=== PATIENT | female | born 2000 ===

== ENCOUNTER 2021-02-18 12:15 | Emergency (ER) | payer OTHER, BC, SELFPAY ==
[2021-02-18 12:21] VITALS: BP 109/69; PULSE 76; RESP 18; TEMP 36.1; O2SAT 99; BMI 27.4
--- NOTE | 2021-02-18 12:24 | PC.NURSE ---
great toes are not infected. slightl swelling lateral edges of nail bilaterally.
--- NOTE | 2021-02-18 12:38 | ED.LOWEXIN ---
HPI - Extremity Injury (Lower) General Chief Complaint: Extremity Injury, Lower Stated Complaint: TOENAIL ISSUE Time Seen by Provider: 02/18/21 12:38 History of Present Illness HPI Narrative: Patient complains of ingrown nails on both big toes of both feet, this is developed over many weeks to months, no acute injury no fever no chills Related Data Allergies Allergy/AdvReac Type Severity Reaction Status Date / Time No Known Allergies Allergy Verified 02/18/21 12:20 Review of Systems Review of Systems: Positive for ingrown nails Negative for fever chills dizziness weakness no joint pains no rashes no numbness weakness or tingling Yes all other systems are reviewed and are negative PMFSH Past Medical History Source: nursing notes reviewed Medical History (Updated 02/19/21 @ 00:01 by Destiny Youngblood) Healthy adult Social History Social History Advance Directives: Yes Advance Directives Information Provided: Yes Advance Directives on File: No Patient : No Physical Exam Vital Signs: Vital Signs: Last Vital Signs Temp 97 F 02/18/21 12:21 Pulse 76 02/18/21 12:21 Resp 18 02/18/21 12:21 BP 109/69 02/18/21 12:21 Pulse Ox 99 02/18/21 12:21 Body Mass Index 27.4 General appearance no acute distress Neck is supple Respiratory no distress 9 Extremities full range of motion x4 Exam of the feet shows ingrown toenails both medial and lateral on both big toes without any redness no sign of infection Course Course Course Narrative: After cleansing with Betadine digital block is applied to both left and right big toes The nail area is cleansed with Betadine and using a forceps and a scissors the ingrown sections both medial and lateral of both big toes is excised There was no pus or discharge no evidence of any infection Discharge Plan Discharge Clinical Impression: Ingrown toenail of both feet Patient Disposition: Home, Self-Care Additional Instructions: Ingrown sections of both nails were removed, there is no sign of infection Follow with wedding consultant if needed Return any sign of infection any concerns Referrals: Rod Palumbo [Physician] - 2 days Interventions: ED Discharge Assessment Last Done: 02/18/21 14:19 Discharge Date/Time: 02/18/21 14:20
[2021-02-18] MEDS: Lidocaine HCl 1 % MPF 5 ML VIAL SUBCUT ×3 (13:49)
== END 2021-02-18 14:20 | disposition home or self-care (01) ==
PROVIDERS: Emergency Provider Emergency Medicine; PCP Internal Medicine
DX: L60.0 Ingrowing nail (principal)
CPT/HCPCS: 11765; 99283; 99284

== ENCOUNTER 2021-04-25 18:08 | Emergency (ER) | payer BC, OTHER, SELFPAY ==
[2021-04-25 19:35] VITALS: BP 121/61; PULSE 86; RESP 18; TEMP 35.9; O2SAT 100; BMI 34.1
--- NOTE | 2021-04-25 21:24 | ED_ITS ---
HPI - Skin/Abscess/Foreign Bdy General Chief complaint: Skin/Abscess/Foreign Body Stated complaint: jellyfish sting Source: patient Mode of arrival: ambulatory Limitations: no limitations History of Present Illness HPI narrative: 21-year-old female presents with injury sustained from a jellyfish sting. Stated that she was stung by a jellyfish while in [place] 09/30/2026, stated that she did have some inflammation and pain at that time. The initial reaction to the jellyfish and counter resolved, however today she noted that there was a recurrent rash and pain to the site. Patient is here for an evaluation of multiple sting sites. MD complaint: insect bite/sting (Jelly fish) Onset (ago): day(s) (Seven) Tetanus up to date: yes Location: buttocks and RLE Severity: moderate Severity scale (1-10): 6 Quality: burning and aching Pain Consistency: constant Relieving factors: none Exacerbating factors: palpation and movement Associated symptoms: denies other symptoms Treatments prior to arrival: none Related Data Allergies Allergy/AdvReac Type Severity Reaction Status Date / Time No Known Allergies Allergy Verified 04/25/21 19:35 Review of Systems Review of Systems: Constitutional: No Fever, No Chills ENT/Mouth: No Ear Pain, No Hoarseness, No sore throat Eyes: No Eye Pain, No Swelling, No Redness, No Foreign Body Cardiovascular: No Chest Pain, No SOB Respiratory: No Cough, No Dyspnea Gastrointestinal: No Nausea, No Vomiting, No Diarrhea, No abdominal Pain Genitourinary: No Dysuria, No Hematuria Musculoskeletal: No oint pain, No Myalgias, No Joint Swelling Skin: Positive rash and itching to the right buttock and right lateral thigh, No Skin lacerations Neuro: No Weakness, No Numbness, No Paresthesias, No Loss of Consciousness, No Dizziness, No Headache Psych: No Anxiety/Panic, No Depression Heme/Lymph: no easy bruising, no Lymphadenopathy Endocrine: No Polyuria, No Polydipsia Yes all other systems are reviewed and are negative [facility] Past Medical History Attestation statement: The following information was validated with the patient. Source: old records reviewed Medical History (Updated 04/26/21 @ 00:01 by Destiny Youngblood) Healthy adult Social History Social History Advance Directives: No Patient : No Physical Exam Vital Signs: Vital Signs: Last Vital Signs Temp 96.7 F L 04/25/21 19:35 Pulse 86 04/25/21 19:35 Resp 18 04/25/21 19:35 BP 121/61 04/25/21 19:35 Pulse Ox 100 04/25/21 19:35 Body Mass Index 34.1 Appearance: Alert. Oriented X3. No acute distress. Eyes: Pupils equal, round and reactive to light. ENT: Pharynx normal. Neck: Normal inspection. Neck supple. CVS: Normal heart rate and rhythm. Pulses normal. Respiratory: No respiratory distress. Breath sounds normal. Abdomen: Soft and nontender. Skin: Erythema noted to the right buttock and right lateral thigh, Skin warm and dry. Normal skin color. Normal skin turgor. Extremities: No lower extremity edema. Moves all extremities against resistance, gait well balanced well coordinated. Neuro: No motor deficit. No sensory deficit. Cranial nerves 2-12 intact, no focal neural deficits. Course Course Course Narrative: 21-year-old female presents with a recurrent rash from a jellyfish sting that occurred on 04/19 while she was in [place]. Up-to-date research indicates that jellyfish stings can recur 7-14 days after the initial sting. Treatment is meat tenderizer or baking soda paste applied to the sites. Patient will use Benadryl and hydrocortisone cream as needed. Patient does not have any focal neural deficits, cranial nerves 2-12 intact, brisk capillary refill in equal pulses to all extremities. No indication of neurotoxicity, skin is not open, and the areas are blanchable. No indication of necrotizing skin tissue to the sting sites. Plan of care is to discharge home with supportive measures. Patient verbalized understanding of and agrees to plan of care. MDM - Skin/Abscess/Foreign Bdy MDM Narrative Medical decision making narrative: Jellyfish sting Differential Diagnosis Differential diagnosis: Likely cellulitis Medical Records Attestation: I reviewed the patient's medical records. Discharge Plan Discharge Clinical Impression: Jellyfish sting Patient Disposition: Home, Self-Care Instructions: Marine Animal Bite or Sting (ED) Additional Instructions: You were evaluated for a jellyfish sting. A rash from a jelly fish sting can recur 7-14 days after the initial sting and can become very itchy and painful and may last for several weeks. Please use Benadryl and topical hydrocortisone cream as needed to help with pain and itching. Up-to-date resource suggest using meat tenderizer or a baking soda paste. Use Tylenol or Motrin as needed for pain management. Thank you for choosing this emergency department for evaluation. Please follow-up with primary care physician as needed. Return to the emergency department for any new, concerning, or worsening symptoms. Interventions: ED Discharge Assessment Last Done: 04/25/21 21:30 Discharge Date/Time: 04/25/21 22:09
== END 2021-04-25 22:09 | disposition home or self-care (01) ==
PROVIDERS: Emergency Provider Internal Medicine; PCP Internal Medicine
DX: M79.661 Pain in right lower leg (principal); L53.8 Other specified erythematous conditions; W56.81XA Bitten by other nonvenomous marine animals, initial encounter
CPT/HCPCS: 99283

== ENCOUNTER 2021-06-13 17:58 | Emergency (ER) | payer BC, OTHER, SELFPAY ==
[2021-06-13 19:02] VITALS: BP 134/74; PULSE 80; RESP 16; TEMP 36.7; O2SAT 100; BMI 34.0
--- NOTE | 2021-06-13 19:32 | ED.LOWEXIN ---
HPI - Extremity Injury (Lower) General Chief Complaint: Extremity Injury, Lower Stated Complaint: toe injury Time Seen by Provider: 06/13/21 19:32 Source: patient Mode of arrival: ambulatory Limitations: no limitations History of Present Illness HPI Narrative: Ingrown toenail removed in January and now with erythema and pus after dropping a paintbucket on it 4 days ago. complaint: other (1st digit right foot) Onset (ago): day(s) Place: home Severity: mild Exacerbating factors: nothing Associated symptoms: swelling and other (pus) Related Data Previous Rx's Medication Instructions Recorded cephalexin 500 mg capsule 500 mg PO Q8H #15 cap 06/13/21 Allergies Allergy/AdvReac Type Severity Reaction Status Date / Time No Known Allergies Allergy Verified 06/13/21 19:09 Review of Systems Constitutional: Constitutional: Reports no additional constitutional complaints Eyes: Eyes: Reports no additional eye complaints ENT: Denies dizziness Cardiovascular: Cardiovascular: Reports no additional cardiovascular complaints Respiratory: Respiratory: Reports as per HPI Gastrointestinal: Gastrointestinal: Reports no additional gastrointestinal complaints Genitourinary: Genitourinary: Reports no additional female genitourinary complaints Musculoskeletal: Musculoskeletal: Reports no additional musculoskeletal complaints Integumentary/Breasts: Skin/Breast: Denies rash Neurologic: Reports system reviewed and no additional complaints, except as documented, Denies dizziness and Denies Sensory deficit (Neuro) Psychiatric: Psychiatric: Denies anxiety [facility] Past Medical History Medical History (Updated 06/13/21 @ 20:21 by Hemal Snow MD) Healthy adult Social History Social History Advance Directives: No Advance Directives Information Provided: No Patient : No Physical Exam Vital Signs: Vital Signs: Last Vital Signs Temp 98.0 F 06/13/21 19:02 Pulse 80 06/13/21 19:02 Resp 16 06/13/21 19:02 BP 134/74 06/13/21 19:02 Pulse Ox 100 06/13/21 19:02 Body Mass Index 34.0 Const: General: healthy appearing Nutritional Appearance: average body habitus Orientation/consciousness: oriented to person and patient oriented x3 Limitations: no limitations HENMT: Head: Yes normal to inspection Ears: external ears normal General nose exam: Normal external nose present Mouth: Normal oral and palatal mucosa present and oropharynx normal Throat: Yes posterior oropharynx normal Eyes: General: appearance normal, both eyes and all related structures Neck: Other: supple Neck: Yes normal visual inspection Chest: Chest palpation & inspection: normal inspection of the chest Resp: Auscultation: clear to auscultation bilaterally Cardio: Jugular venous distension: no JVD Rate: regular rate Rhythm: regular rhythm Heart sounds: S1 normal heart sound present and S2 normal heart sound present GI: Inspection: Yes normal to inspection Palpation (GI): Soft to palpation, nontender and No hepatosplenomegaly present Auscultation: normal bowel sounds : General: Yes no CVA tenderness Back/Spine/Pelvis: Back: no CVA tenderness Skin: General skin exam: no rashes or lesions noted Neuro: General: oriented to person and patient oriented x3 Cranial nerves: Yes CN's II-XII intact bilaterally Motor exam (neuro): 5/5 motor strength present throughout Sensory Exam: No Sensory deficit (Neuro) Extrem: Other: right 1st digit with medial toenail ingrown with slight erythema Psych: Appearance: grossly normal Course Reevaluation(s) Reevaluation #1: toenail trimmed back and removed Time: 20:20 Procedures Procedure Narrative Procedure Narrative: Under sterile procedure patient prepped and draped, digital block with lido 1% used, nail trimmed back and ingrown toenail removed, silvernitrate stick used to epinychium. Discharge Plan Discharge Clinical Impression: Ingrown right big toenail Patient Disposition: Home, Self-Care Instructions: Ingrown Nail (ED), Nail Removal (ED) Prescriptions: New cephalexin 500 mg capsule 500 mg PO Q8H Qty: 15 RF: 0 Referrals: Ashley Robert MD [Primary Care Provider] - 1 week Stand Alone Forms: Work/School Release
[2021-06-13] MEDS: Lidocaine HCl 1 % 20 ML VIAL 10 ML INFILTRATI (19:43)
[2021-06-13] MEDS: Silver Nitrate Applicator STICK..EA. 1 APPL TOPICAL (19:43)
== END 2021-06-13 20:27 | disposition home or self-care (01) ==
PROVIDERS: Emergency Provider Emergency Medicine; PCP Internal Medicine
DX: L60.0 Ingrowing nail (principal); Z79.899 Other long term (current) drug therapy
CPT/HCPCS: 11750; 99283; 99284